=== PATIENT | male | born 1955 | race Caucasian/White ===

== ENCOUNTER 2023-04-04 18:42 | Inpatient (IN) | payer OTHER ==
[~2023-04-04] VITALS: Ht 172.7 cm; Wt 105.2 kg
[2023-04-04] MEDS ORDERED: FAMOTIDINE/PF INJ 20 MG/2 ML VIAL IV ONE ×2 (19:26→19:30)
[2023-04-04] MEDS ORDERED: ONDANSETRON HCL/PF 4 MG/2 ML VIAL ONE (19:26)
[2023-04-04] MEDS ORDERED: IV NS 0.9% 1,000 ML BAG IV ONE (19:30)
[2023-04-04] MEDS ORDERED: ONDANSETRON HCL/PF 4 MG/2 ML VIAL IVP ONE (19:30)
[2023-04-04 19:33] LABS: BASOPHILS % (AUTO) 0.1 % (0.0-2.0); EOSINOPHILS # (AUTO) 0.1 K/uL (0.0-0.7); EOSINOPHILS % (AUTO) 0.4 % (0.0-6.0); HEMATOCRIT 47 % (39-51); HEMOGLOBIN 15.6 g/dL (13.5-17.5); LYMPHOCYTES # (AUTO) 1.4 K/uL (0.8-4.8); MEAN CORPUSCULAR HEMOGLOBIN 31 PG (26.0-33.0); MEAN CORPUSCULAR HGB CONC 33 g/dl (31.0-36.0); MEAN CORPUSCULAR VOLUME 92 fL (80-96); MONOCYTES # (AUTO) 0.9 K/uL (0.1-1.30); MONOCYTES % (AUTO) 5.1 % (2.0-12.0); NEUTROPHILS % (AUTO) 86.4 % (43.0-81.0); PLATELET COUNT (AUTO) 266 K/uL (150-450); RED BLOOD CELL COUNT(AUTO) 5.08 MIL/uL (4.5-6.0); WHITE BLOOD COUNT (AUTO) 17.4 K/uL (4.3-11.0)
[2023-04-04 19:48] LABS: CALCIUM, SERUM 9.1 mg/dL (8.5-10.1); CARBON DIOXIDE 26 mmol/L (21-32); CHLORIDE 102 mmol/L (98-107); CREATININE 0.8 mg/dL (0.6-1.3); GLUCOSE 142 mg/dL (74-106); POTASSIUM 3.3 mmol/L (3.5-5.1); SODIUM SERUM 140 mmol/L (136-145); UREA NITROGEN, BLOOD 20 mg/dL (7-18)
[2023-04-04 19:53] LABS: ALANINE AMINOTRANSFERASE 189 U/L (12-78); ALBUMIN 4.1 g/dL (3.4-5.0); ALKALINE PHOSPHATASE 89 U/L (46-116); ASPARTATE AMINOTRANSFERASE 257 U/L (15-37); BILIRUBIN,DIRECT 0.9 mg/dL (0.0-0.2); BILIRUBIN,TOTAL 1.4 mg/dL (0.2-1.0); TOTAL PROTEIN, SERUM 7.6 g/dL (6.4-8.2)
[2023-04-04 19:55] LABS: LIPASE 11956 U/L (73-393)
[2023-04-04] MEDS ORDERED: MORPHINE SULFATE INJ 4 MG/ML DISP.SYRIN ONE (20:30)
[2023-04-04] MEDS ORDERED: MORPHINE SULFATE INJ 2 MG/ML DISP.SYRIN IV ONE (20:30)
[2023-04-04] MEDS ORDERED: MAG HYDROX/AL HYDROX/SIMETH 30 ML UDC PO PRN (21:30)
[2023-04-04] MEDS ORDERED: Z GUARD REMEDY 4 OZ OINT TP PRN (21:30)
[2023-04-04 21:52] LABS: APPEARANCE,URINE CLEAR (CLEAR); BILIRUBIN,URINE NEGATIVE (NEGATIVE); BLOOD, URINE NEGATIVE Ery/uL (NEGATIVE); COLOR,URINE YELLOW (YELLOW); KETONES,URINE NEGATIVE (NEGATIVE); LEUKOCYTE ESTERASE ,URINE NEGATIVE (NEGATIVE); NITRITE, URINE NEGATIVE (NEGATIVE); PROTEIN,URINE NEGATIVE (NEGATIVE); UGLUCOSE NEGATIVE (NEGATIVE)
[2023-04-04] MEDS ORDERED: POTASSIUM CL. PREMIX PERIPHER. 50 ML IV SCH (22:00)
[2023-04-04 22:15] VITALS: BP 172/92; TEMP 98.1; O2SAT 95
[2023-04-04] MEDS: POTASSIUM CL. PREMIX PERIPHER. 50 ML IV SCH ×2 (22:20→23:31)
[2023-04-04] MEDS: IV NS 0.9% 1,000 ML IV PRN (22:24)
[2023-04-04] MEDS: MORPHINE SULFATE INJ 2 MG/ML DISP.SYRIN IV PRN (22:30)
[2023-04-05] MEDS: ONDANSETRON HCL/PF 4 MG/2 ML VIAL IVP PRN ×2 (00:22→18:47)
[2023-04-05] MEDS: POTASSIUM CL. PREMIX PERIPHER. 50 ML IV SCH ×2 (00:44→02:01)
[2023-04-05] MEDS: MORPHINE SULFATE INJ 2 MG/ML DISP.SYRIN IV PRN ×2 (02:40→08:52)
[2023-04-05] MEDS ORDERED: hydrALAZINE HCL IV 20 MG VIAL IV PRN (05:00)
[2023-04-05 05:56] LABS: HEMATOCRIT 52 % (39-51); HEMOGLOBIN 17.4 g/dL (13.5-17.5); LYMPHOCYTES # (AUTO) 0.8 K/uL (0.8-4.8); LYMPHOCYTES % (AUTO) 4.1 % (20.0-44.0); MEAN CORPUSCULAR HEMOGLOBIN 31 PG (26.0-33.0); MEAN CORPUSCULAR HGB CONC 34 g/dl (31.0-36.0); MEAN CORPUSCULAR VOLUME 93 fL (80-96); MONOCYTES # (AUTO) 0.8 K/uL (0.1-1.30); MONOCYTES % (AUTO) 4.4 % (2.0-12.0); NEUTROPHILS # (AUTO) 16.6 K/uL (1.8-8.9); NEUTROPHILS % (AUTO) 91.5 % (43.0-81.0); PLATELET COUNT (AUTO) 276 K/uL (150-450); RED BLOOD CELL COUNT(AUTO) 5.58 MIL/uL (4.5-6.0); RED CELL DISTRIBUTION WIDTH 13.2 % (11.5-15.0); WHITE BLOOD COUNT (AUTO) 18.2 K/uL (4.3-11.0)
[2023-04-05 06:00] VITALS: BP 144/88; O2SAT 99
[2023-04-05 06:11] LABS: CALCIUM, SERUM 8.7 mg/dL (8.5-10.1); CREATININE 0.9 mg/dL (0.6-1.3); PHOSPHORUS 3.5 mg/dL (2.5-4.9); POTASSIUM 4.8 mmol/L (3.5-5.1)
[2023-04-05 07:30] VITALS: BP 156/101; TEMP 98.6; O2SAT 93
[2023-04-05 07:56] LABS: ALBUMIN 3.7 g/dL (3.4-5.0); BILIRUBIN,DIRECT 0.4 mg/dL (0.0-0.2); TOTAL PROTEIN, SERUM 7.3 g/dL (6.4-8.2)
[2023-04-05] MEDS: PANTOPRAZOLE 40 MG VIAL IV SCH (08:52)
[2023-04-05] MEDS: HYDROMORPHONE 1 MG/1 ML DISP.SYRIN IV PRN ×3 (11:36→18:47)
[2023-04-05] MEDS ORDERED: [UNRECOGNIZED DRUG - OTHER] PO (11:44)
[2023-04-05] MEDS ORDERED: [UNRECOGNIZED DRUG - OTHER] PO (11:44)
[2023-04-05] MEDS: IV NS 0.9% 1,000 ML IV PRN (14:45)
[2023-04-05 16:00] VITALS: BP 106/76; TEMP 97.6; O2SAT 92
[2023-04-05 20:00] VITALS: BP 118/84; TEMP 97.8; O2SAT 96
[2023-04-05] MEDS: LORAZEPAM INJ 2 MG/ML VIAL IV PRN (22:30)
[2023-04-06 04:00] VITALS: BP 132/60; TEMP 98.4; O2SAT 93
[2023-04-06] MEDS: IV NS 0.9% 1,000 ML IV PRN (04:11)
[2023-04-06] MEDS: HYDROMORPHONE 1 MG/1 ML DISP.SYRIN IV PRN ×4 (04:13→23:38)
[2023-04-06 07:25] LABS: BASOPHILS % (AUTO) 0.1 % (0.0-2.0); HEMATOCRIT 47 % (39-51); HEMOGLOBIN 15.7 g/dL (13.5-17.5); LYMPHOCYTES # (AUTO) 1.6 K/uL (0.8-4.8); LYMPHOCYTES % (AUTO) 6.3 % (20.0-44.0); MEAN CORPUSCULAR HEMOGLOBIN 31 PG (26.0-33.0); MEAN CORPUSCULAR HGB CONC 33 g/dl (31.0-36.0); MEAN CORPUSCULAR VOLUME 94 fL (80-96); MONOCYTES # (AUTO) 1.7 K/uL (0.1-1.30); MONOCYTES % (AUTO) 6.8 % (2.0-12.0); NEUTROPHILS # (AUTO) 21.7 K/uL (1.8-8.9); NEUTROPHILS % (AUTO) 86.8 % (43.0-81.0); PLATELET COUNT (AUTO) 214 K/uL (150-450); RED BLOOD CELL COUNT(AUTO) 5.03 MIL/uL (4.5-6.0); RED CELL DISTRIBUTION WIDTH 13.8 % (11.5-15.0)
[2023-04-06 07:30] VITALS: BP 129/74; TEMP 98.6; O2SAT 94
[2023-04-06] MEDS: PANTOPRAZOLE 40 MG VIAL IV SCH (08:12)
[2023-04-06 10:13] LABS: ALBUMIN 3.1 g/dL (3.4-5.0); BILIRUBIN,DIRECT 0.4 mg/dL (0.0-0.2); BILIRUBIN,TOTAL 1.4 mg/dL (0.2-1.0); CALCIUM, SERUM 7.3 mg/dL (8.5-10.1); CREATININE 1.8 mg/dL (0.6-1.3); MAGNESIUM 1.7 mg/dL (1.8-2.4); PHOSPHORUS 2.9 mg/dL (2.5-4.9); TOTAL PROTEIN, SERUM 6.3 g/dL (6.4-8.2)
[2023-04-06] MEDS: MAGNESIUM HYDROXIDE 30 ML UDC PO PRN (17:38)
[2023-04-06 20:00] VITALS: BP 122/82; TEMP 98.8; O2SAT 92
[2023-04-07] MEDS: HYDROMORPHONE 1 MG/1 ML DISP.SYRIN IV PRN ×4 (05:31→19:54)
[2023-04-07 06:52] LABS: BASOPHILS % (AUTO) 0.1 % (0.0-2.0); HEMATOCRIT 40 % (39-51); HEMOGLOBIN 13.4 g/dL (13.5-17.5); LYMPHOCYTES # (AUTO) 1.1 K/uL (0.8-4.8); LYMPHOCYTES % (AUTO) 6.6 % (20.0-44.0); MEAN CORPUSCULAR HEMOGLOBIN 32 PG (26.0-33.0); MEAN CORPUSCULAR HGB CONC 34 g/dl (31.0-36.0); MEAN CORPUSCULAR VOLUME 93 fL (80-96); MONOCYTES # (AUTO) 1.3 K/uL (0.1-1.30); MONOCYTES % (AUTO) 7.7 % (2.0-12.0); NEUTROPHILS # (AUTO) 13.9 K/uL (1.8-8.9); NEUTROPHILS % (AUTO) 85.6 % (43.0-81.0); PLATELET COUNT (AUTO) 160 K/uL (150-450); RED BLOOD CELL COUNT(AUTO) 4.25 MIL/uL (4.5-6.0); RED CELL DISTRIBUTION WIDTH 13.6 % (11.5-15.0); WHITE BLOOD COUNT (AUTO) 16.2 K/uL (4.3-11.0)
[2023-04-07 07:21] LABS: ALBUMIN 2.6 g/dL (3.4-5.0); BILIRUBIN,DIRECT 0.5 mg/dL (0.0-0.2); BILIRUBIN,TOTAL 1.5 mg/dL (0.2-1.0); MAGNESIUM 1.9 mg/dL (1.8-2.4); PHOSPHORUS 1.5 mg/dL (2.5-4.9); POTASSIUM 4.3 mmol/L (3.5-5.1); TOTAL PROTEIN, SERUM 5.8 g/dL (6.4-8.2)
[2023-04-07 07:30] VITALS: BP 106/65; TEMP 98.6; O2SAT 86
[2023-04-07] MEDS: PANTOPRAZOLE 40 MG VIAL IV SCH (08:35)
[2023-04-07 08:57] LABS: CHOLESTEROL 94 mg/dL (<200); HDL CHOLESTEROL 21 mg/dL (40-60); LDL 53 mg/dL (0-99); TRIGLYCERIDES 114 mg/dL (30-150)
[2023-04-07 09:05] LABS: BAND % (MANUAL) 2 % (0.0-5.0); LYMPHOCYTES % (MANUAL) 5 % (16-48); MONOCYTES % (MANUAL) 3 % (0-11.0); MYELOCYTES % 1 % (0-0); NEUTROPHILS % (MANUAL) 89 (42-76); PLATELET ESTIMATE ADEQUATE
[2023-04-07] MEDS ORDERED: NEUTRA PHOS 1 POWD.PACKET NG ONE (10:30)
[2023-04-07] MEDS: IV NS 0.9% 1,000 ML IV PRN (12:39)
[2023-04-07] MEDS: ONDANSETRON HCL/PF 4 MG/2 ML VIAL IVP PRN (15:01)
[2023-04-07] MEDS: MAGNESIUM HYDROXIDE 30 ML UDC PO PRN (15:17)
[2023-04-07 16:39] VITALS: BP 125/63; TEMP 98.3; O2SAT 79
[2023-04-07 20:00] VITALS: BP 117/64; TEMP 98.5; O2SAT 93
[2023-04-08] VITALS (9 sets, daily range): BP systolic 102–129; BP diastolic 51–91; TEMP 98.5–101.4; O2SAT 89–94
[2023-04-08] MEDS: HYDROMORPHONE 1 MG/1 ML DISP.SYRIN IV PRN ×6 (00:03→20:04)
[2023-04-08 07:25] LABS: BASOPHILS % (AUTO) 0.1 % (0.0-2.0); HEMATOCRIT 36 % (39-51); HEMOGLOBIN 11.9 g/dL (13.5-17.5); LYMPHOCYTES # (AUTO) 0.9 K/uL (0.8-4.8); LYMPHOCYTES % (AUTO) 6.4 % (20.0-44.0); MEAN CORPUSCULAR HEMOGLOBIN 31 PG (26.0-33.0); MEAN CORPUSCULAR HGB CONC 33 g/dl (31.0-36.0); MEAN CORPUSCULAR VOLUME 93 fL (80-96); MONOCYTES # (AUTO) 1.5 K/uL (0.1-1.30); MONOCYTES % (AUTO) 9.9 % (2.0-12.0); NEUTROPHILS # (AUTO) 12.5 K/uL (1.8-8.9); NEUTROPHILS % (AUTO) 83.6 % (43.0-81.0); PLATELET COUNT (AUTO) 190 K/uL (150-450); RED BLOOD CELL COUNT(AUTO) 3.85 MIL/uL (4.5-6.0); RED CELL DISTRIBUTION WIDTH 13.3 % (11.5-15.0); WHITE BLOOD COUNT (AUTO) 14.9 K/uL (4.3-11.0)
[2023-04-08 07:45] LABS: CREATININE 0.9 mg/dL (0.6-1.3); MAGNESIUM 2.1 mg/dL (1.8-2.4); PHOSPHORUS 1.1 mg/dL (2.5-4.9); POTASSIUM 3.7 mmol/L (3.5-5.1)
[2023-04-08 08:42] LABS: ALBUMIN 2.4 g/dL (3.4-5.0); BILIRUBIN,TOTAL 1.5 mg/dL (0.2-1.0); TOTAL PROTEIN, SERUM 5.7 g/dL (6.4-8.2)
[2023-04-08] MEDS: PANTOPRAZOLE 40 MG VIAL IV SCH (08:47)
[2023-04-08] MEDS: POTASSIUM PHOSPHATE MM 7.5 MMOL in IV NS 0.9% 100 ML IV SCH ×2 (09:38→12:42)
[2023-04-08 10:46] LABS: BILIRUBIN,DIRECT 0.6 mg/dL (0.0-0.2)
[2023-04-08] MEDS ORDERED: DILTIAZEM HCL 25 MG IV IV PRN (17:30)
[2023-04-08] MEDS ORDERED: DILTIAZEM HCL 50 MG IV IV ONE (20:30)
[2023-04-08] MEDS: DILTIAZEM HCL IV 125 MG in IV NS 0.9% 100 ML IV PRN (21:31)
[2023-04-08] MEDS: IV NS 0.9% 1,000 ML IV PRN (22:26)
[2023-04-08] MEDS ORDERED: ZOLPIDEM TARTRATE 5 MG TABLET PO PRN (23:00)
[2023-04-08] MEDS: ACETAMINOPHEN 650 MG/SUPP.RECT RC PRN (23:56)
[2023-04-09] VITALS (42 sets, daily range): BP systolic 89–160; BP diastolic 60–109; TEMP 98.4–100.5; O2SAT 87–99
[2023-04-09 04:45] LABS: BASOPHILS % (AUTO) 0.1 % (0.0-2.0); EOSINOPHILS % (AUTO) 0.1 % (0.0-6.0); HEMATOCRIT 36 % (39-51); HEMOGLOBIN 12.1 g/dL (13.5-17.5); MEAN CORPUSCULAR HEMOGLOBIN 31 PG (26.0-33.0); MEAN CORPUSCULAR HGB CONC 34 g/dl (31.0-36.0); MEAN CORPUSCULAR VOLUME 94 fL (80-96); MONOCYTES # (AUTO) 2.1 K/uL (0.1-1.30); MONOCYTES % (AUTO) 14.2 % (2.0-12.0); NEUTROPHILS # (AUTO) 11.6 K/uL (1.8-8.9); NEUTROPHILS % (AUTO) 78.6 % (43.0-81.0); PLATELET COUNT (AUTO) 227 K/uL (150-450); RED BLOOD CELL COUNT(AUTO) 3.86 MIL/uL (4.5-6.0); RED CELL DISTRIBUTION WIDTH 13.2 % (11.5-15.0); WHITE BLOOD COUNT (AUTO) 14.8 K/uL (4.3-11.0)
[2023-04-09] MEDS ORDERED: DILTIAZEM HCL 25 MG IV ONE (04:53)
[2023-04-09] MEDS: LORAZEPAM INJ 2 MG/ML VIAL IV PRN (05:08)
[2023-04-09 05:13] LABS: ALBUMIN 2.3 g/dL (3.4-5.0); BILIRUBIN,DIRECT 0.8 mg/dL (0.0-0.2); BILIRUBIN,TOTAL 1.7 mg/dL (0.2-1.0); CALCIUM, SERUM 7.2 mg/dL (8.5-10.1); CREATININE 0.8 mg/dL (0.6-1.3); MAGNESIUM 2.1 mg/dL (1.8-2.4); PHOSPHORUS 1.6 mg/dL (2.5-4.9); POTASSIUM 3.7 mmol/L (3.5-5.1); TOTAL PROTEIN, SERUM 5.8 g/dL (6.4-8.2)
[2023-04-09] MEDS: DILTIAZEM HCL IV 125 MG in IV NS 0.9% 100 ML IV PRN (05:20)
[2023-04-09 05:36] LABS: LYMPHOCYTES % (MANUAL) 4 % (16-48); MONOCYTES % (MANUAL) 11 % (0-11.0); NEUTROPHILS % (MANUAL) 85 (42-76); PLATELET ESTIMATE ADEQUATE
[2023-04-09] MEDS ORDERED: AMIODARONE 150 MG in IV D5W 100 ML IV ONE (06:00)
[2023-04-09 06:50] LABS: ABG BASE EXCESS -0.6 mmol/L; ABG OXYGEN SATURATION 93.2 % (92.0-98.5); ABG PCO2 31.3 mmHg (35.0-45.0); ABG PO2 63.3 mmHg (75.0-100.0); ABG TOTAL HEMOGLOBIN 12.9 G/dL (13.5-18.0); AaDO2 185.9 mmHg; COHb 0.6 % (0.5-1.5); MetHb 0.5 % (0.0-1.5); O2Hb 92.2 % (94.0-97.0); SITE, ABG Right Radial; VENT MODE, BG 5 LPM NC
[2023-04-09] MEDS ORDERED: ADENOSINE 6 MG/2 ML VIAL IVP ONE ×2 (07:00→07:30)
[2023-04-09] MEDS: AMIODARONE 450 MG in IV D5W 241 ML IV PRN ×3 (07:47→20:07)
[2023-04-09] MEDS ORDERED: FUROSEMIDE 40 MG/4 ML VIAL IV ONE (09:00)
[2023-04-09] MEDS: PANTOPRAZOLE 40 MG TABLET.DR PO SCH (10:04)
[2023-04-09] MEDS: POTASSIUM CHLORIDE 20 MEQ TAB.PRT.SR PO SCH ×3 (10:05→12:55)
[2023-04-09] MEDS: FUROSEMIDE 40 MG/4 ML VIAL IV SCH ×3 (10:09→17:09)
[2023-04-09] MEDS: IPRATROPIUM NEB FS 0.5 MG/2.5 ML AMPUL.NEB NEB SCH ×3 (10:30→19:44)
[2023-04-09] MEDS: ENOXAPARIN SODIUM 100 MG/ML DISP.SYRIN SQ SCH ×2 (10:56→21:14)
[2023-04-09] MEDS ORDERED: NEUTRA PHOS 1 POWD.PACKET PO ONE (16:00)
[2023-04-10] VITALS (25 sets, daily range): BP systolic 126–149; BP diastolic 60–87; TEMP 97.8–99.7; O2SAT 92–100
[2023-04-10] MEDS: HYDROMORPHONE 1 MG/1 ML DISP.SYRIN IV PRN (01:15)
[2023-04-10] MEDS: IPRATROPIUM NEB FS 0.5 MG/2.5 ML AMPUL.NEB NEB SCH ×4 (01:18→19:50)
[2023-04-10 04:04] LABS: BASOPHILS % (AUTO) 0.1 % (0.0-2.0); EOSINOPHILS # (AUTO) 0.1 K/uL (0.0-0.7); EOSINOPHILS % (AUTO) 0.4 % (0.0-6.0); HEMATOCRIT 32 % (39-51); LYMPHOCYTES # (AUTO) 1.3 K/uL (0.8-4.8); LYMPHOCYTES % (AUTO) 10.1 % (20.0-44.0); MEAN CORPUSCULAR HEMOGLOBIN 32 PG (26.0-33.0); MEAN CORPUSCULAR HGB CONC 34 g/dl (31.0-36.0); MEAN CORPUSCULAR VOLUME 92 fL (80-96); MONOCYTES # (AUTO) 2.1 K/uL (0.1-1.30); MONOCYTES % (AUTO) 16.4 % (2.0-12.0); NEUTROPHILS # (AUTO) 9.3 K/uL (1.8-8.9); PLATELET COUNT (AUTO) 269 K/uL (150-450); RED BLOOD CELL COUNT(AUTO) 3.51 MIL/uL (4.5-6.0); RED CELL DISTRIBUTION WIDTH 12.9 % (11.5-15.0); WHITE BLOOD COUNT (AUTO) 12.8 K/uL (4.3-11.0)
[2023-04-10 04:38] LABS: BAND % (MANUAL) 5 % (0.0-5.0); LYMPHOCYTES % (MANUAL) 8 % (16-48); METAMYELOCYTES % 1 % (0-0); MONOCYTES % (MANUAL) 9 % (0-11.0); NEUTROPHILS % (MANUAL) 77 (42-76); PLATELET ESTIMATE ADEQUATE
[2023-04-10 04:40] LABS: ALBUMIN 2.2 g/dL (3.4-5.0); BILIRUBIN,TOTAL 1.7 mg/dL (0.2-1.0); CALCIUM, SERUM 7.4 mg/dL (8.5-10.1); CREATININE 0.8 mg/dL (0.6-1.3); MAGNESIUM 1.9 mg/dL (1.8-2.4); PHOSPHORUS 2.3 mg/dL (2.5-4.9); POTASSIUM 3.4 mmol/L (3.5-5.1); TOTAL PROTEIN, SERUM 5.9 g/dL (6.4-8.2)
[2023-04-10] MEDS: FUROSEMIDE 40 MG/4 ML VIAL IV SCH ×3 (07:56→15:31)
[2023-04-10] MEDS: NEUTRA PHOS 1 POWD.PACKET PO SCH ×2 (07:56→15:34)
[2023-04-10] MEDS: POTASSIUM CHLORIDE 20 MEQ TAB.PRT.SR PO SCH ×3 (07:57→12:00)
[2023-04-10] MEDS: ENOXAPARIN SODIUM 40 MG/0.4 ML DISP.SYRIN SQ SCH (08:00)
[2023-04-10] MEDS: PANTOPRAZOLE 40 MG TABLET.DR PO SCH (11:59)
[2023-04-11] VITALS (13 sets, daily range): BP systolic 128–150; BP diastolic 73–90; TEMP 98.3–100.4; O2SAT 93–100
[2023-04-11] MEDS: IPRATROPIUM NEB FS 0.5 MG/2.5 ML AMPUL.NEB NEB SCH ×4 (01:34→20:17)
[2023-04-11 07:22] LABS: EOSINOPHILS % (AUTO) 0.1 % (0.0-6.0); HEMATOCRIT 36 % (39-51); HEMOGLOBIN 12.1 g/dL (13.5-17.5); LYMPHOCYTES # (AUTO) 0.9 K/uL (0.8-4.8); LYMPHOCYTES % (AUTO) 7.2 % (20.0-44.0); MEAN CORPUSCULAR HEMOGLOBIN 31 PG (26.0-33.0); MEAN CORPUSCULAR HGB CONC 34 g/dl (31.0-36.0); MEAN CORPUSCULAR VOLUME 92 fL (80-96); MONOCYTES # (AUTO) 1.3 K/uL (0.1-1.30); NEUTROPHILS # (AUTO) 10.7 K/uL (1.8-8.9); NEUTROPHILS % (AUTO) 82.7 % (43.0-81.0); PLATELET COUNT (AUTO) 359 K/uL (150-450); RED BLOOD CELL COUNT(AUTO) 3.88 MIL/uL (4.5-6.0); RED CELL DISTRIBUTION WIDTH 13.3 % (11.5-15.0)
[2023-04-11 07:38] LABS: ALBUMIN 2.1 g/dL (3.4-5.0); BILIRUBIN,TOTAL 1.2 mg/dL (0.2-1.0); CALCIUM, SERUM 7.9 mg/dL (8.5-10.1); CREATININE 0.8 mg/dL (0.6-1.3); PHOSPHORUS 2.2 mg/dL (2.5-4.9); POTASSIUM 3.3 mmol/L (3.5-5.1); TOTAL PROTEIN, SERUM 6.2 g/dL (6.4-8.2)
[2023-04-11] MEDS: POTASSIUM CHLORIDE 20 MEQ TAB.PRT.SR PO SCH ×3 (08:55→11:15)
[2023-04-11] MEDS: PANTOPRAZOLE 40 MG TABLET.DR PO SCH (08:55)
[2023-04-11] MEDS: ENOXAPARIN SODIUM 40 MG/0.4 ML DISP.SYRIN SQ SCH (08:57)
[2023-04-11] MEDS: NEUTRA PHOS 1 POWD.PACKET PO SCH ×2 (09:00→16:00)
[2023-04-11] MEDS: ACETAMINOPHEN 650 MG/SUPP.RECT RC PRN (22:19)
[2023-04-12] VITALS (12 sets, daily range): BP systolic 125–140; BP diastolic 70–88; TEMP 98.2–102.5; O2SAT 93–100
[2023-04-12] MEDS: IPRATROPIUM NEB FS 0.5 MG/2.5 ML AMPUL.NEB NEB SCH ×4 (00:55→19:41)
[2023-04-12 08:31] LABS: BASOPHILS % (AUTO) 0.2 % (0.0-2.0); EOSINOPHILS % (AUTO) 0.2 % (0.0-6.0); HEMATOCRIT 35 % (39-51); HEMOGLOBIN 11.8 g/dL (13.5-17.5); LYMPHOCYTES # (AUTO) 1.1 K/uL (0.8-4.8); LYMPHOCYTES % (AUTO) 5.9 % (20.0-44.0); MEAN CORPUSCULAR HEMOGLOBIN 31 PG (26.0-33.0); MEAN CORPUSCULAR HGB CONC 33 g/dl (31.0-36.0); MEAN CORPUSCULAR VOLUME 92 fL (80-96); MONOCYTES # (AUTO) 1.1 K/uL (0.1-1.30); MONOCYTES % (AUTO) 6.1 % (2.0-12.0); NEUTROPHILS # (AUTO) 15.8 K/uL (1.8-8.9); NEUTROPHILS % (AUTO) 87.6 % (43.0-81.0); PLATELET COUNT (AUTO) 402 K/uL (150-450); RED BLOOD CELL COUNT(AUTO) 3.84 MIL/uL (4.5-6.0); RED CELL DISTRIBUTION WIDTH 13.3 % (11.5-15.0); WHITE BLOOD COUNT (AUTO) 18.1 K/uL (4.3-11.0)
[2023-04-12 09:07] LABS: CALCIUM, SERUM 8.1 mg/dL (8.5-10.1); CREATININE 0.7 mg/dL (0.6-1.3); MAGNESIUM 2.1 mg/dL (1.8-2.4); PHOSPHORUS 2.9 mg/dL (2.5-4.9); POTASSIUM 3.6 mmol/L (3.5-5.1)
[2023-04-12] MEDS: PANTOPRAZOLE 40 MG TABLET.DR PO SCH (09:12)
[2023-04-12] MEDS: ENOXAPARIN SODIUM 40 MG/0.4 ML DISP.SYRIN SQ SCH (09:14)
[2023-04-12] MEDS ORDERED: CEFEPIME 2 GM in IV D5W 100 ML IV SCH (11:00)
[2023-04-12] MEDS: ACETAMINOPHEN 650 MG/SUPP.RECT RC PRN (19:41)
[2023-04-12] MEDS: MEROPENEM 1 G in IV NS 0.9% 100 ML IV SCH (21:15)
[2023-04-13] VITALS (15 sets, daily range): BP systolic 113–153; BP diastolic 64–81; TEMP 98.2–100.9; O2SAT 91–100
[2023-04-13] MEDS: IPRATROPIUM NEB FS 0.5 MG/2.5 ML AMPUL.NEB NEB SCH ×4 (01:14→20:32)
[2023-04-13] MEDS: MEROPENEM 1 G in IV NS 0.9% 100 ML IV SCH ×3 (05:51→21:04)
[2023-04-13 06:44] LABS: BASOPHILS % (AUTO) 0.1 % (0.0-2.0); EOSINOPHILS % (AUTO) 0.2 % (0.0-6.0); HEMATOCRIT 34 % (39-51); HEMOGLOBIN 11.2 g/dL (13.5-17.5); LYMPHOCYTES # (AUTO) 1.1 K/uL (0.8-4.8); LYMPHOCYTES % (AUTO) 4.9 % (20.0-44.0); MEAN CORPUSCULAR HEMOGLOBIN 31 PG (26.0-33.0); MEAN CORPUSCULAR HGB CONC 33 g/dl (31.0-36.0); MEAN CORPUSCULAR VOLUME 92 fL (80-96); MONOCYTES # (AUTO) 1.1 K/uL (0.1-1.30); MONOCYTES % (AUTO) 5.2 % (2.0-12.0); NEUTROPHILS # (AUTO) 19.7 K/uL (1.8-8.9); NEUTROPHILS % (AUTO) 89.6 % (43.0-81.0); PLATELET COUNT (AUTO) 459 K/uL (150-450); RED BLOOD CELL COUNT(AUTO) 3.63 MIL/uL (4.5-6.0); RED CELL DISTRIBUTION WIDTH 13.3 % (11.5-15.0)
[2023-04-13 07:03] LABS: ALBUMIN 1.8 g/dL (3.4-5.0); BILIRUBIN,DIRECT 0.4 mg/dL (0.0-0.2); BILIRUBIN,TOTAL 0.8 mg/dL (0.2-1.0); CREATININE 0.8 mg/dL (0.6-1.3); MAGNESIUM 2.1 mg/dL (1.8-2.4); PHOSPHORUS 3.1 mg/dL (2.5-4.9); POTASSIUM 3.7 mmol/L (3.5-5.1); TOTAL PROTEIN, SERUM 5.8 g/dL (6.4-8.2)
[2023-04-13] MEDS: PANTOPRAZOLE 40 MG TABLET.DR PO SCH (08:32)
[2023-04-13] MEDS: ENOXAPARIN SODIUM 40 MG/0.4 ML DISP.SYRIN SQ SCH (08:33)
[2023-04-13] MEDS: MAGNESIUM HYDROXIDE 30 ML UDC PO PRN (18:43)
[2023-04-14] VITALS (13 sets, daily range): BP systolic 119–148; BP diastolic 70–87; TEMP 97.9–99.2; O2SAT 92–99
[2023-04-14] MEDS: IPRATROPIUM NEB FS 0.5 MG/2.5 ML AMPUL.NEB NEB SCH ×4 (02:26→20:45)
[2023-04-14] MEDS: MEROPENEM 1 G in IV NS 0.9% 100 ML IV SCH ×3 (04:33→20:34)
[2023-04-14 06:57] LABS: EOSINOPHILS # (AUTO) 0.1 K/uL (0.0-0.7); EOSINOPHILS % (AUTO) 0.5 % (0.0-6.0); HEMATOCRIT 32 % (39-51); HEMOGLOBIN 10.8 g/dL (13.5-17.5); LYMPHOCYTES # (AUTO) 1.1 K/uL (0.8-4.8); LYMPHOCYTES % (AUTO) 5.6 % (20.0-44.0); MEAN CORPUSCULAR HEMOGLOBIN 31 PG (26.0-33.0); MEAN CORPUSCULAR HGB CONC 33 g/dl (31.0-36.0); MEAN CORPUSCULAR VOLUME 93 fL (80-96); MONOCYTES # (AUTO) 1.1 K/uL (0.1-1.30); MONOCYTES % (AUTO) 5.6 % (2.0-12.0); NEUTROPHILS # (AUTO) 17.5 K/uL (1.8-8.9); NEUTROPHILS % (AUTO) 88.3 % (43.0-81.0); PLATELET COUNT (AUTO) 470 K/uL (150-450); RED BLOOD CELL COUNT(AUTO) 3.49 MIL/uL (4.5-6.0); WHITE BLOOD COUNT (AUTO) 19.8 K/uL (4.3-11.0)
[2023-04-14 07:18] LABS: CALCIUM, SERUM 8.4 mg/dL (8.5-10.1); CREATININE 0.8 mg/dL (0.6-1.3); POTASSIUM 3.8 mmol/L (3.5-5.1)
[2023-04-14] MEDS: PANTOPRAZOLE 40 MG TABLET.DR PO SCH (08:40)
[2023-04-14] MEDS: ENOXAPARIN SODIUM 40 MG/0.4 ML DISP.SYRIN SQ SCH (08:55)
[2023-04-14] MEDS ORDERED: IV NS 0.9% 250 ML IV ONE (09:01)
[2023-04-14] MEDS ORDERED: CT SWABBABLE VALVE TRANS SET 1 EA INFUS.SET MC ONE (09:01)
[2023-04-14] MEDS ORDERED: IOHEXOL-300 100 ML VIAL IV ONE (09:01)
[2023-04-14] MEDS: ACETAMINOPHEN 325 MG TABLET PO PRN (15:45)
[2023-04-15] VITALS (14 sets, daily range): BP systolic 125–145; BP diastolic 68–83; TEMP 98–101.8; O2SAT 88–100
[2023-04-15] MEDS ORDERED: TEMAZEPAM 15 MG CAPSULE PO PRN (00:15)
[2023-04-15] MEDS: IPRATROPIUM NEB FS 0.5 MG/2.5 ML AMPUL.NEB NEB SCH ×4 (02:05→20:06)
[2023-04-15] MEDS: MEROPENEM 1 G in IV NS 0.9% 100 ML IV SCH ×3 (04:55→20:56)
[2023-04-15 06:44] LABS: BASOPHILS % (AUTO) 0.1 % (0.0-2.0); EOSINOPHILS # (AUTO) 0.1 K/uL (0.0-0.7); EOSINOPHILS % (AUTO) 0.7 % (0.0-6.0); HEMATOCRIT 33 % (39-51); HEMOGLOBIN 10.9 g/dL (13.5-17.5); LYMPHOCYTES # (AUTO) 1.2 K/uL (0.8-4.8); LYMPHOCYTES % (AUTO) 6.6 % (20.0-44.0); MEAN CORPUSCULAR HEMOGLOBIN 31 PG (26.0-33.0); MEAN CORPUSCULAR HGB CONC 33 g/dl (31.0-36.0); MEAN CORPUSCULAR VOLUME 93 fL (80-96); MONOCYTES # (AUTO) 1.1 K/uL (0.1-1.30); MONOCYTES % (AUTO) 6.1 % (2.0-12.0); NEUTROPHILS # (AUTO) 16.3 K/uL (1.8-8.9); NEUTROPHILS % (AUTO) 86.5 % (43.0-81.0); PLATELET COUNT (AUTO) 569 K/uL (150-450); RED BLOOD CELL COUNT(AUTO) 3.56 MIL/uL (4.5-6.0); RED CELL DISTRIBUTION WIDTH 13.5 % (11.5-15.0); WHITE BLOOD COUNT (AUTO) 18.9 K/uL (4.3-11.0)
[2023-04-15 07:08] LABS: CALCIUM, SERUM 7.9 mg/dL (8.5-10.1); CREATININE 0.9 mg/dL (0.6-1.3); PHOSPHORUS 3.3 mg/dL (2.5-4.9); POTASSIUM 3.7 mmol/L (3.5-5.1)
[2023-04-15] MEDS: PANTOPRAZOLE 40 MG TABLET.DR PO SCH (08:03)
[2023-04-15] MEDS: ENOXAPARIN SODIUM 40 MG/0.4 ML DISP.SYRIN SQ SCH (08:04)
[2023-04-15] MEDS: ACETAMINOPHEN 325 MG TABLET PO PRN (20:06)
[2023-04-16] VITALS (14 sets, daily range): BP systolic 140–150; BP diastolic 72–86; TEMP 98–100.7; O2SAT 92–100
[2023-04-16] MEDS: IPRATROPIUM NEB FS 0.5 MG/2.5 ML AMPUL.NEB NEB SCH ×4 (01:17→19:48)
[2023-04-16] MEDS: MEROPENEM 1 G in IV NS 0.9% 100 ML IV SCH ×3 (05:15→20:30)
[2023-04-16 06:22] LABS: BASOPHILS % (AUTO) 0.2 % (0.0-2.0); EOSINOPHILS # (AUTO) 0.2 K/uL (0.0-0.7); EOSINOPHILS % (AUTO) 1.2 % (0.0-6.0); HEMATOCRIT 33 % (39-51); LYMPHOCYTES # (AUTO) 1.2 K/uL (0.8-4.8); LYMPHOCYTES % (AUTO) 6.8 % (20.0-44.0); MEAN CORPUSCULAR HEMOGLOBIN 31 PG (26.0-33.0); MEAN CORPUSCULAR HGB CONC 33 g/dl (31.0-36.0); MEAN CORPUSCULAR VOLUME 93 fL (80-96); MONOCYTES % (AUTO) 6.1 % (2.0-12.0); NEUTROPHILS # (AUTO) 14.6 K/uL (1.8-8.9); NEUTROPHILS % (AUTO) 85.7 % (43.0-81.0); PLATELET COUNT (AUTO) 643 K/uL (150-450); RED BLOOD CELL COUNT(AUTO) 3.57 MIL/uL (4.5-6.0)
[2023-04-16 06:59] LABS: CALCIUM, SERUM 8.1 mg/dL (8.5-10.1); CREATININE 0.8 mg/dL (0.6-1.3)
[2023-04-16] MEDS: ENOXAPARIN SODIUM 40 MG/0.4 ML DISP.SYRIN SQ SCH (09:09)
[2023-04-16] MEDS: PANTOPRAZOLE 40 MG TABLET.DR PO SCH (09:10)
[2023-04-16] MEDS: PROSOURCE / PROSTAT (PYXIS) 30 ML UDC PO SCH ×4 (09:16→21:00)
[2023-04-16] MEDS: ACETAMINOPHEN 325 MG TABLET PO PRN (16:52)
[2023-04-17] VITALS (14 sets, daily range): BP systolic 135–157; BP diastolic 72–87; TEMP 98.2–99.7; O2SAT 92–100
[2023-04-17] MEDS: IPRATROPIUM NEB FS 0.5 MG/2.5 ML AMPUL.NEB NEB SCH ×4 (01:15→20:01)
[2023-04-17] MEDS: MEROPENEM 1 G in IV NS 0.9% 100 ML IV SCH ×3 (04:08→21:04)
[2023-04-17 05:51] LABS: CALCIUM, SERUM 8.6 mg/dL (8.5-10.1); CREATININE 0.7 mg/dL (0.6-1.3)
[2023-04-17 06:19] LABS: BASOPHILS % (AUTO) 0.3 % (0.0-2.0); EOSINOPHILS # (AUTO) 0.2 K/uL (0.0-0.7); EOSINOPHILS % (AUTO) 1.3 % (0.0-6.0); HEMATOCRIT 31 % (39-51); HEMOGLOBIN 10.4 g/dL (13.5-17.5); LYMPHOCYTES # (AUTO) 1.2 K/uL (0.8-4.8); LYMPHOCYTES % (AUTO) 6.8 % (20.0-44.0); MEAN CORPUSCULAR HEMOGLOBIN 31 PG (26.0-33.0); MEAN CORPUSCULAR HGB CONC 33 g/dl (31.0-36.0); MEAN CORPUSCULAR VOLUME 93 fL (80-96); MONOCYTES # (AUTO) 0.9 K/uL (0.1-1.30); MONOCYTES % (AUTO) 5.2 % (2.0-12.0); NEUTROPHILS # (AUTO) 14.7 K/uL (1.8-8.9); NEUTROPHILS % (AUTO) 86.4 % (43.0-81.0); PLATELET COUNT (AUTO) 625 K/uL (150-450); RED BLOOD CELL COUNT(AUTO) 3.37 MIL/uL (4.5-6.0); RED CELL DISTRIBUTION WIDTH 13.2 % (11.5-15.0)
[2023-04-17] MEDS: PANTOPRAZOLE 40 MG TABLET.DR PO SCH (08:12)
[2023-04-17] MEDS: PROSOURCE / PROSTAT (PYXIS) 30 ML UDC PO SCH ×4 (08:13→21:05)
[2023-04-17 09:02] LABS: THYROID STIMULATING HORMONE 3.17 uIU/mL (0.358-3.74)
[2023-04-17] MEDS: METOPROLOL TARTRATE 50 MG TABLET PO SCH ×2 (11:46→17:48)
[2023-04-18] VITALS (12 sets, daily range): BP systolic 132–139; BP diastolic 72–83; TEMP 98–99.2; O2SAT 94–100
[2023-04-18] MEDS: METOPROLOL TARTRATE 50 MG TABLET PO SCH ×3 (00:33→11:32)
[2023-04-18] MEDS: IPRATROPIUM NEB FS 0.5 MG/2.5 ML AMPUL.NEB NEB SCH ×3 (01:09→13:52)
[2023-04-18] MEDS: MEROPENEM 1 G in IV NS 0.9% 100 ML IV SCH ×2 (05:14→11:55)
[2023-04-18 06:39] LABS: BASOPHILS # (AUTO) 0.1 K/uL (0.0-0.2); BASOPHILS % (AUTO) 0.4 % (0.0-2.0); EOSINOPHILS # (AUTO) 0.2 K/uL (0.0-0.7); EOSINOPHILS % (AUTO) 1.6 % (0.0-6.0); HEMATOCRIT 30 % (39-51); LYMPHOCYTES # (AUTO) 1.1 K/uL (0.8-4.8); LYMPHOCYTES % (AUTO) 7.5 % (20.0-44.0); MEAN CORPUSCULAR HEMOGLOBIN 31 PG (26.0-33.0); MEAN CORPUSCULAR HGB CONC 33 g/dl (31.0-36.0); MEAN CORPUSCULAR VOLUME 93 fL (80-96); MONOCYTES % (AUTO) 6.8 % (2.0-12.0); NEUTROPHILS # (AUTO) 12.3 K/uL (1.8-8.9); NEUTROPHILS % (AUTO) 83.7 % (43.0-81.0); PLATELET COUNT (AUTO) 671 K/uL (150-450); RED BLOOD CELL COUNT(AUTO) 3.23 MIL/uL (4.5-6.0); RED CELL DISTRIBUTION WIDTH 13.2 % (11.5-15.0); WHITE BLOOD COUNT (AUTO) 14.6 K/uL (4.3-11.0)
[2023-04-18 07:17] LABS: CALCIUM, SERUM 8.3 mg/dL (8.5-10.1); CREATININE 0.8 mg/dL (0.6-1.3); POTASSIUM 4.1 mmol/L (3.5-5.1)
[2023-04-18] MEDS ORDERED: LEVO500T90 PO (08:17)
[2023-04-18] MEDS ORDERED: METO50TA16 PO (08:17)
[2023-04-18] MEDS: PROSOURCE / PROSTAT (PYXIS) 30 ML UDC PO SCH ×2 (08:34→12:01)
[2023-04-18] MEDS: PANTOPRAZOLE 40 MG TABLET.DR PO SCH (08:34)
== END 2023-04-18 16:25 | disposition home or self-care (01) | DRG 438 ==
LOC: EDBD → ER 18:45 → MED 21:20 → TELE 04-08 17:02 → ICU 04-08 20:33 → TELE1 04-10 14:25
PROVIDERS: ADMIT Nurse Practitioner Acute Care; ATTEND Internal Medicine
PROC: 05H633Z Insertion of Infusion Device into Left Subclavian Vein, Percutaneous Approach (ICD-10-PCS; principal; 2023-04-13)
PROC: B547ZZA Ultrasonography of Left Subclavian Vein, Guidance (ICD-10-PCS; 2023-04-13)
DX: K85.91 Acute pancreatitis with uninfected necrosis, unspecified (principal); N17.0 Acute kidney failure with tubular necrosis; R65.11 Systemic inflammatory response syndrome (SIRS) of non-infectious origin with acute organ dysfunction; E87.1 Hypo-osmolality and hyponatremia; J90 Pleural effusion, not elsewhere classified; I47.1 Supraventricular tachycardia; J81.1 Chronic pulmonary edema; K86.3 Pseudocyst of pancreas; K80.50 Calculus of bile duct without cholangitis or cholecystitis without obstruction; E87.6 Hypokalemia; E83.39 Other disorders of phosphorus metabolism; I48.91 Unspecified atrial fibrillation; N28.1 Cyst of kidney, acquired; Z87.442 Personal history of urinary calculi; K76.0 Fatty (change of) liver, not elsewhere classified; R74.01 Elevation of levels of liver transaminase levels; E66.9 Obesity, unspecified; Z68.35 Body mass index [BMI] 35.0-35.9, adult; N20.0 Calculus of kidney; N40.0 Benign prostatic hyperplasia without lower urinary tract symptoms; I11.0 Hypertensive heart disease with heart failure; I50.9 Heart failure, unspecified; E66.01 Morbid (severe) obesity due to excess calories
CPT/HCPCS: 36410; 36415; 36600; 71045-TC; 74160-TC; 74181-TC; 76700-TC; 80048-TC; 80053-TC; 80061-TC; 80076-TC; 82962-TC; 83690-TC; 83735-TC; 84100-TC; 84439-TC; 84443-TC; 84484-TC; 85025-TC; 87040-TC; 87081-TC; 87086-TC; 94799-TC; 97530-TC; A4223; C9113; G0378; J0153; J0282; J0360; J0692; J1170; J1650; J1940; J2060; J2185; J2270; J2405; J3480; J3490; J7030; J7040; J7050; J7060; Q9967